=== PATIENT | female | born 1960 | race Caucasian/White ===

== ENCOUNTER 2017-07-24 13:53 | Emergency (ER) | payer OTHER ==
[~2017-07-24] VITALS: Ht 157.5 cm; Wt 113.4 kg
[~2017-07-24 13:53] MED LIST: ALBU0.0912 INH; ASPIRIN PO; FURO-570 PO; METO50TA20; POTA8TER12 PO
[2017-07-24 13:56] VITALS: BP 141/87
--- NOTE | 2017-07-24 14:30 | NUR ---
Patient ambulated to [facility] at this time.
--- NOTE | 2017-07-24 14:35 | NUR ---
57/F PRESENT TO ER C/O 10/11 CONSTANT "SHARP" RT HIP RADIATING TO RT KNEE PAIN x 2 MONTHS S/P FALLING WHEN MOPPING KITCHEN FLOOR; P PT DENIES KO/LOC. PT STS WALKING MAKES THE PAIN WORSE. SKIN AND CMS INTACT TO BL LOWER EXTREMITIES. PT IS AOX4 WITH STEADY GAIT. RR ARE EVEN AND UNLABORED. NO ACUTE DISTRESS. AWAITNG ER MD ANTHONY. ALL NEEDS MET AT THIS TIME. WILL CONTINUE TO MONITOR.
[2017-07-24] MEDS ORDERED: KETOROLAC 60 MG/2 ML VIAL IM ONE (14:40)
--- NOTE | 2017-07-24 15:40 | NUR ---
PT LEFT WITHOUT DISCHARGE PAPERWORK
== END 2017-07-24 15:40 | disposition home or self-care (01) ==
LOC: MED 13:53
DX: M54.16 Radiculopathy, lumbar region (principal); M25.561 Pain in right knee; J45.909 Unspecified asthma, uncomplicated; I11.0 Hypertensive heart disease with heart failure; E11.9 Type 2 diabetes mellitus without complications; Z88.2 Allergy status to sulfonamides
CPT/HCPCS: 29105; 73502; 73562; 96372; 99284; J1885